=== PATIENT | male | born 1995 | race Caucasian/White ===

== ENCOUNTER 2020-05-20 16:27 | Outpatient (CLI) | payer OTHER, SELFPAY ==
--- NOTE | 2020-05-20 16:56 | XR_ITS ---
WS: [id number] Exam: XR foot RT min 3V* [id number] Date/Time of Exam: 05/20/2020 4:58 PM Reason For Exam: RIGHT FOOT PAIN Findings: The foot was examined in multiple views and reveals no fractures or displacements of bone. No bony a nomalies are noted. The bony elements are in adequate alignment. The joint spaces are smooth and eq uidistant. XR/XR foot RT min 3V* [id number] IMPRESSION: Negative right foot.
== END 2020-05-20 16:28 | disposition home or self-care (01) ==
PROVIDERS: PCP Family Medicine; Visit Provider Family Medicine
DX: M79.671 Pain in right foot (principal)
CPT/HCPCS: 73630

== ENCOUNTER 2021-08-15 14:46 | Outpatient (CLI) | payer OTHER, SELFPAY ==
--- NOTE | 2021-08-15 15:09 | USCV_ITS ---
Guevara Mell Age: 26 Gender: M : 1995 Exam Date: 08/15/2021 15:37 Ordering Phys: Ramiro Batres DO Technologist: Reddy Green Exam Location: [facility] [place] Indication: heart murmur BP: 120 / 80 HR: 63 Rhythm: Sinus Technical Quality: Adequate MEASUREMENTS (Male / Female) Normal Values 2D ECHO LV Diastolic Diameter PLAX 5.3 cm 4.2 - 5.9 / 3.9 - 5.3 cm LV Systolic Diameter PLAX 3.3 cm IVS Diastolic Thickness 0.6 cm 0.6 - 1.0 / 0.6 - 0.9 cm IVS Systolic Thickness 1.1 cm LVPW Diastolic Thickness 1.0 cm 0.6 - 1.0 / 0.6 - 0.9 cm LVPW Systolic Thickness 1.3 cm LVOT Diameter 2.0 cm LV Ejection Fraction 2D Teich 69.0 % LV Ejection Fraction MOD 2C 72.6 % LV Ejection Fraction 2C AL 73.4 % LA Diameter 3.0 cm LA Width 3.1 cm LA Height 3.6 cm RA Width 2.9 cm RA Height 3.9 cm Aorta at Sinotubular Diameter 2.5 cm IVC Diameter 1.8 cm M-MODE Aortic Annulus Diameter 2.9 cm LA Ao Ratio MM 1.0 MV E Point Septal Separation 0.6 cm DOPPLER AV Peak Velocity 166.3 cm/s LVOT Peak Velocity 74.0 cm/s AV Area Cont Eq vti 1.6 cm squared AV Area Cont Eq pk 1.4 cm squared MV Peak Velocity 60.0 cm/s MV Area PHT 4.5 cm squared Mitral E to A Ratio 1.8 MV E' Velocity 42.5 cm/s Mitral E to MV E' Ratio 5.8 Mitral E to LV E' Lateral Ratio 6.1 Mitral E to LV E' Septal Ratio 5.5 TR Peak Velocity 194.3 cm/s TR Peak Gradient 15.1 mmHg TR Mean Velocity 145.5 cm/s TR Mean Gradient 8.8 mmHg TR Velocity Time Integral 44.9 cm Right Atrial Pressure 3.0 mmHg Pulmonary Artery Systolic Pressu 18.1 mmHg RV Acceleration Time 0.1 s RV Ejection Time 0.3 s RV AcT/ET 0.5 FINDINGS Left Ventricle Normal left ventricular size and systolic function, EF 67 %. No regional wall motion abnormalities. Right Ventricle The right ventricle is normal in size and function. Right Atrium The right atrium is normal in size. Left Atrium The left atrium is normal in size. Mitral Valve No gross abnormalities noted Aortic Valve Thickened aortic valve. Mild aortic valve regurgitation. Some restriction of aortic valve Tricuspid Valve Trace to mild tricuspid valve regurgitation. Pulmonic Valve Mild pulmonary valve regurgitation. Pericardium Normal pericardium without effusion. Aorta Normal ascending aorta dimension. IVC The inferior vena cava pulmonary and hepatic veins appear normal. CONCLUSIONS Normal left ventricular size and systolic function, EF 67 %. No regional wall motion abnormalities. Thickened aortic valve with some restriction of mobility, suggest bicuspid aortic valve. Mild aortic regurgitation. Trace to mild tricuspid valve regurgitation. Mild pulmonary valve regurgitation. Estimated pulmonary artery peak systolic pressure of 18 mm of Hg There is no pericardial effusion. There are no intracardiac masses. Consider ALVA, to better evaluate the aortic valve Dr Carmella Dorsey MD FACC (Electronically Signed) Final Date: 15 Aug 2021 17:46 S
== END 2021-08-15 14:47 | disposition home or self-care (01) ==
LOC: RAD 15:03
PROVIDERS: PCP Family Medicine; Visit Provider Family Medicine
DX: R01.1 Cardiac murmur, unspecified (principal); I35.1 Nonrheumatic aortic (valve) insufficiency; I35.8 Other nonrheumatic aortic valve disorders; I37.1 Nonrheumatic pulmonary valve insufficiency
CPT/HCPCS: 93306

== ENCOUNTER 2021-10-15 17:58 | Emergency (ER) | payer OTHER, SELFPAY ==
[2021-10-15 18:30] VITALS: BP 121/72; PULSE 73; RESP 16; TEMP 36.8; O2SAT 97; BMI 23.6
--- NOTE | 2021-10-15 18:39 | XRR_ITS ---
PROCEDURE INFORMATION: Exam: XR Right Hand Exam date and time: 10/15/2021 6:43 PM Age: 26 years old Clinical indication: Injury or trauma; Fall; Blunt trauma (contusions or hematomas); Hand; Right; Injury details: 1st metacarpal TECHNIQUE: Imaging protocol: Radiologic exam of the Right hand. Views: 3 or more views. COMPARISON: No relevant prior studies available. FINDINGS: Bones/joints: Osseous structures are intact. Negative for fracture. Joint spaces are preserved. Soft tissues: Normal. XR/XR hand RT min 3V* [id number] IMPRESSION: No acute findings.
[2021-10-15] MEDS: cephALEXin 500 mg Capsule PO (20:26)
--- NOTE | 2021-10-15 22:03 | W.ED.EXTPRO ---
HPI - Extremity Problem General: Chief complaint: Extremity Injury, Upper Stated complaint: right hand swelling Time Seen by Provider: 10/15/21 18:58 History of Present Illness: Patient presents to ER with right hand swelling. Pt states he fell at [employer] and now has redness and swelling. Pt denies any dumbness or tingling. Pt denies any other injuries or pain. Associated symptoms: Deny chest pain, fever(s) or rash Review of Systems Const: Denies: fever(s), chills, body aches, change in appetite, change in weight, fatigue, malaise or diaphoresis Eyes: Denies: change in vision, blurry vision, blind spots, photophobia, eye discomfort, eye discharge, eye redness, floaters or seeing flashes ENMT: Denies: throat pain, uvular edema, enlarged tonsils, odynophagia, hoarseness, mouth pain, swelling of lips/tongue, oral sores, bleeding gums, dental pain, dry mouth, ear or mastoid pain, ear discharge, change in hearing, tinnitus, disequilibrium, nasal discharge, nasal congestion, post nasal drip or sinus pain Card: Denies: chest pain, palpitations, irregular heart rhythm, edema, swelling of feet/ankles, lightheadedness, syncope, pre-syncope, dyspnea on exertion, orthopnea, leg pain with exertion or acrocyanosis Resp: Denies: dyspnea, productive cough, non-productive cough, wheezing, stridor, pain on inspiration, change in phlegm color, hemoptysis or chest congestion GI: Denies: abdominal pain, nausea, vomiting, hematemesis, dysphagia, diarrhea, constipation, GI cramping, change in bowel habits or rectal pain : Denies: flank pain, dysuria, urinary frequency, urinary urgency, urinary hesitancy or hematuria Musc: Reports: other (right hand swelling and pain); Denies: neck pain, back pain, extremity pain, extremity swelling, joint pain, joint swelling, joint redness, joint warmth or deformity Skin/Breast: Denies: rash, pruritus, erythema, sores, new lesions, changes in skin color or dry skin Neuro: Denies: headache(s), numbness in extremities, weakness in extremities, sensory changes, lack of coordination, difficulty walking, frequent falls, dizziness, vertigo, confusion, behavioral changes, Slurred speech present, difficulty communicating thoughts or seizure-like activity Psych: Denies: anxiety, depression, suicidal ideation or homicidal ideation Endo: Denies: polyuria, polydipsia, tired all the time, cold intolerance, excessive sweating, flushing, hot flashes or heat intolerance Perry/Lymph: Denies: easy bruising, easy bleeding, petechiae, purpura, enlarged lymph nodes or tender lymph nodes All/Imm: Denies: urticaria, throat swelling, tongue swelling, facial swelling, acute wheezing or itchy eyes Physical Exam Const: COMMON NORMALS: no acute distress, average body habitus, patient oriented x3, no limitations, healthy appearing, alert and well nourished HENMT: THROAT: no uvular edema Extremity: NARRATIVE EXTREMITY EXAM: right hand swelling and pain to medial aspect of palmar surface also small puncture wound noted Neuro: COMMON NORMALS: patient oriented x3 SENSORIUM/ORIENTATION: Yes alert Course Vital Signs: Vital signs: Vital Signs Temperature 98.3 F 10/15/21 18:30 Pulse Rate 73 10/15/21 18:30 Respiratory Rate 16 10/15/21 18:30 Blood Pressure 121/72 10/15/21 18:30 Pulse Oximetry 97 10/15/21 18:30 MDM - Extremity (Nontraumatic) Medical Decision Making Patient is well appearing non toxic and in no acute distress. Patient presents to ER with right hand swelling. Pt states he fell at [employer] yesterday and now has redness and swelling. Pt denies any dumbness or tingling. Pt denies any other injuries or pain. Pt is NVI distally. xray is negative for any acute fracture or dislocation. given the small puncture women and degree of swelling and erythema I am suspicious of cellulitis. I will place patient on Keflex at this time. pt is afebrile. VSS. return precautions and home care asvised Lab Data Radiology Impressions Hand X-Ray 10/15/21 18:39 IMPRESSION: No acute findings. Discharge Plan Discharge Patient Disposition: Home Clinical Impression: Hand sprain, Cellulitis Condition: Stable Prescriptions: New cephalexin 500 mg capsule 500 mg PO Q8H 7 Days Qty: 21 0RF Discharge Orders: Discharge ED (Routine); Ordered 10/15/21 Ordered By: Simona Brown Referrals: Ramiro Batres DO [Primary Care Provider] - Discharge Diet: Advance as tolerated Discharge Activity: Increase activity as tolerated Patient Instructions: Opioid Safety Activity Restrictions/Additional Instructions: Please ice elevate and may take ibuprofen for pain and swelling Follow up in 1-2 weeks if no improvement Return to er with any worsening of symptoms Coding Level of Care Code ED [employer] for Abhinav Lilly
--- NOTE | 2021-10-16 14:20 | DCPLANNER ---
Addendum entered by Leesa Ashley 11/15/21 12:24: Patient had a follow up appointment scheduled with ortho - patient did attend appointment. Addendum entered by Leesa Ashley 10/19/21 15:27: Patient has a follow up appointment scheduled for Monday, October 25, 2021 at 2:[address] Woodson at ortho. Clinic will call patient with appointment information. Original Note: facilities project manager had message to schedule a follow up appointment for patient with ortho. facilities project manager sent patients information to the front office staff at ortho. Patients information will be printed and reviewed. Clinic will call patient with appointment information.
== END 2021-10-15 20:27 | disposition home or self-care (01) ==
PROVIDERS: Emergency Provider Registered Nurse; PCP Family Medicine
DX: S63.91XA Sprain of unspecified part of right wrist and hand, initial encounter (principal); L03.113 Cellulitis of right upper limb; W19.XXXA Unspecified fall, initial encounter
CPT/HCPCS: 73130; 99283

== ENCOUNTER → 2023-02-20 09:46 | Outpatient (BNVA) | payer OTHER, SELFPAY | PROVIDERS: PCP Family Medicine; Visit Provider Family Medicine | DX: Z30.09 Encounter for other general counseling and advice on contraception (principal); Z13.6 Encounter for screening for cardiovascular disorders; Z00.00 Encounter for general adult medical examination without abnormal findings; R79.89 Other specified abnormal findings of blood chemistry | CPT/HCPCS: 80053; 80061; 82040; 84270; 84403 ==